=== PATIENT | male | born 1945 | race Caucasian/White ===

== ENCOUNTER 2019-04-01 16:39 | Emergency (ER) | payer SELFPAY ==
[~2019-04-01] VITALS: Ht 172.7 cm; Wt 61.5 kg
--- NOTE | 2019-04-01 16:39 | NUR ---
[facility] divert BIBA c/o hit head r/t GLF when "slipped on wet driveway", denies LOC, +lac to left brow (bleeding controlled with gauze); denies other pain/injury, NV or dizziness; no interventions [employer] & refused PIV at this time; AOx4, responds approp to staff, changed into gown, comfort measures provided, call light within reach; cardiac, NIBP & SpO2 monitors in place.
[2019-04-01] MEDS ORDERED: LIDOCAINE-MPF 1%, 5ML INFIL ONE (17:30)
[2019-04-01] MEDS ORDERED: LIDOCAINE-MPF 1%, 5ML ONE (17:34)
--- NOTE | 2019-04-01 18:03 | NUR ---
pt upright on gurney awake & comfortable, responds approp to staff, NAD, comfort measures provided, call light within reach. pt tolerated wound care well.
--- NOTE | 2019-04-01 18:51 | NUR ---
report given to Kit VARGAS
--- NOTE | 2019-04-01 18:57 | NUR ---
PT RESTING COMFORTABLY IN [facility] AT THIS TIME. PT DENIES ANY NEEDS. BS REPORT OF PT RECEIVED FROM ALICIA WASHINGTON AND ASSUMING CARE OF PT AT THIS TIME.
[2019-04-01 19:39] VITALS: BP 122/72
--- NOTE | 2019-04-01 19:39 | NUR ---
PT VSS AND UPDATED IN EMR.
== END 2019-04-01 19:56 | disposition home or self-care (01) ==
LOC: ED 19:30
DX: S01.81XA Laceration without foreign body of other part of head, initial encounter (principal); W01.0XXA Fall on same level from slipping, tripping and stumbling without subsequent striking against object, initial encounter; Y93.89 Activity, other specified; Y92.410 Unspecified street and highway as the place of occurrence of the external cause; Y99.8 Other external cause status
CPT/HCPCS: 12011; 70450; 99284